=== PATIENT | male | born 1955 | race Caucasian/White ===

== ENCOUNTER → 2017-11-18 | Outpatient (CLI) | payer OTHER ==
[~2017-11-18] MED LIST: AZITHROMYCIN 2250 MG PO; PROMETHAZINE-C120 ML PO; TOBRADEX EYE DRO5 ML OP; TRAMADOL 50 MG50 MG PO
== END ==
LOC: M.ULTRA 11-17 11:00
DX: K76.0 Fatty (change of) liver, not elsewhere classified (principal); R74.8 Abnormal levels of other serum enzymes

== ENCOUNTER 2020-09-28 13:17 | Emergency (ER) | payer OTHER ==
[~2020-09-28] VITALS: Ht 188 cm; Wt 99.8 kg
[2020-09-28] MEDS ORDERED: NORCO 10-325 T1 EACH PO (13:31)
[2020-09-28] MEDS ORDERED: VISTARIL 25 MG25 M1 PO (14:06)
[2020-09-28] MEDS ORDERED: XANAX 0.5 MG0.5 M1 PO ×2 (14:06→14:09)
[2020-09-28 14:15] VITALS: BP 127/80
== END 2020-09-28 14:15 | disposition home or self-care (01) ==
LOC: M.ERS 13:17
DX: M79.604 Pain in right leg (principal); F41.1 Generalized anxiety disorder; F17.210 Nicotine dependence, cigarettes, uncomplicated; Z86.718 Personal history of other venous thrombosis and embolism

== ENCOUNTER 2020-10-13 04:16 | Emergency (ER) | payer OTHER ==
[~2020-10-13] VITALS: Ht 188 cm; Wt 102.1 kg
[~2020-10-13 04:16] MED LIST changes: +NORCO 10-325 T1 EACH PO; +VISTARIL 25 MG25 M1 PO; +XANAX 0.5 MG0.5 M1 PO
[2020-10-13] MEDS ORDERED: WELLBUTRIN 75 M75 M1 PO (04:27)
[2020-10-13] MEDS ORDERED: XANAX 0.5 MG0.5 M1 PO (04:28)
[2020-10-13 04:46] LABS: HEMATOCRIT 41.1 % (42.0-52.0); HEMOGLOBIN 14.4 gm/dL (14.0-18.0); MCH 37.7 pg (26.0-34.0); MCHC 35.1 g/dL (28.0-37.0); MCV 107.3 fL (80.0-100.0); MPV 7.5 fl. (7.2-11.1); RBC 3.84 mil/uL (4.50-6.00); RDW-CV 16.1 % (10.5-14.5); WBC 8.9 thou/uL (4.0-11.0)
[2020-10-13 04:57] LABS: CALCIUM 8.1 mg/dL (8.5-10.1); CREATININE 0.8 mg/dL (0.6-1.3); POTASSIUM 3.3 mmol/L (3.5-5.1)
[2020-10-13 05:09] LABS: SALICYLATE 3.4 mg/dL (2.8-20.0)
[2020-10-13 05:10] LABS: ALBUMIN 3.4 g/dL (3.4-5.0); TOTAL BILIRUBIN 1.5 mg/dL (<0.1-1.0); TOTAL PROTEIN 7.3 g/dL (6.4-8.2)
[2020-10-13 05:16] LABS: ACETAMINOPHEN < 2 ug/mL (10-30); ALCOHOL < 10 mg/dL (<10)
[2020-10-13 05:20] LABS: URINE BLOOD NEGATIVE (Negative); URINE CLARITY CLEAR; URINE COLOR YELLOW; URINE GLUCOSE-RANDOM NEGATIVE (Negative); URINE KETONES TRACE (Negative); URINE LEUKOCYTES NEGATIVE (Negative); URINE NITRITE NEGATIVE (Negative); URINE PROTEIN NEGATIVE (Negative); URINE SPECIFIC GRAVITY 1.015 (1.005-1.030)
[2020-10-13 05:22] LABS: ICTOTEST (BILI CONFIRMATORY) Negative (Negative); URINE BILIRUBIN 1+ (Negative)
[2020-10-13 05:29] LABS: AMP/METHAMP POSITIVE (Negative); BARBITURATES Negative (Negative); BENZODIAZEPINES POSITIVE (Negative); COCAINE Negative (Negative); METHADONE Negative (Negative); OPIATES Negative (Negative); PCP Negative (Negative); THC Negative (Negative)
[2020-10-13 09:32] VITALS: BP 152/80
--- NOTE | 2020-10-13 15:13 | EKG ---
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 : 1955 Requested By: Donya Ford Order Number: [id number] MD: Donnell Finley Measurements Intervals [place] Rate: 79 P: 39 [place]: 170 QRS: -23 QRSD: 93 T: 1 QT: 433 QTc: 497 Interpretive Statements Sinus rhythm Left ventricular hypertrophy Borderline prolonged QT interval Compared to ECG 10/05/2006 15:20:44 Left ventricular hypertrophy now present Electronically Signed On 10-13-2020 15:12:48 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
== END 2020-10-13 09:32 | disposition home or self-care (01) ==
LOC: M.ERS 04:16
PROVIDERS: Personal Emergency Response Attendant
DX: F15.959 Other stimulant use, unspecified with stimulant-induced psychotic disorder, unspecified (principal); F17.210 Nicotine dependence, cigarettes, uncomplicated; Z96.651 Presence of right artificial knee joint; Z86.718 Personal history of other venous thrombosis and embolism; Z79.899 Other long term (current) drug therapy

== ENCOUNTER → 2020-12-16 | Outpatient (CLI) | payer OTHER ==
[~2020-12-16] MED LIST changes: +WELLBUTRIN 75 M75 M1 PO
== END ==
LOC: M.CT 08:31
PROVIDERS: ATTEND Internal Medicine
DX: K92.1 Melena (principal); F10.20 Alcohol dependence, uncomplicated; I77.810 Thoracic aortic ectasia; I51.7 Cardiomegaly; I25.10 Atherosclerotic heart disease of native coronary artery without angina pectoris

== ENCOUNTER → 2021-02-03 | Outpatient (CLI) | payer OTHER ==
--- NOTE | 2021-02-03 14:00 | CARDNUC ---
[place] [address] CARDIAC NUCLEAR IMAGING REPORT Name: LUNAJAIR RUPERT Room: [facility]#: [id number] Admission: 02/03/21 Attend Phys: Shawanda Cox Discharge: Date of : 59 Date of Service: 02/03/21 1400 Report #: [id number] THIS REPORT FOR: cc: Hardeep Edge MD, Meng MD Liston, Michael J. MD [facility] ~ APPROVED REPORT Imaging Protocol: Rest Tc-99m/Stress Tc-99m 1 day Study performed: 02/03/2021 09:12:37 Indication: Dyspnea, elevated coronary artery calcium score. Patient Location: Out-Patient Stress Tech: Bridgette Jacques Stress Nurse: Rufina Douglas RN NM Tech:JULIÁN Rose Ht: 5 ft 11 in Wt: 219 lbs BSA: 2.19 m2 HR: 72 bpm BP: 182/89 mmHg BMI: 30.54 Medical History Medical History: Dyspnea, elevated coronary artery calcium score, ASHD, cardiomegaly, AAA, alcohol abuse, EILEEN, bradycardia, visual impairment, 2 story fall with multiple fractures- ribs, spine, neck, s/p back surgery with rods, HTN, obesity. Medications: lisinopril Allergies: No known drug allergies Cardiac Risk Factors: Age, Current Smoker, FHX of CAD, HTN, cardiomegaly, AAA, elevated coronary artery calcium score. Previous Cardiac Procedures: None Pretest Chest Pain Characteristics: No chest pain Exercise History: Indeterminate Physical Disabilities: Unsteady weak gait, s/p multiple FX from fall - ribs, back, neck with pain. Meds Held (24 hrs): None Resting Data Rest SPECT myocardial perfusion imaging was performed in supine position 30 minutes following the intravenous injection of 9.0 mCi of Tc-99m Sestamibi. Time of rest injection: 739 Date: 02/03/2021 The images were gated to evaluate regional wall motion and calculate left [place] [address] CARDIAC NUCLEAR IMAGING REPORT Name: JAIR CARRASCO Room: [facility]#: [id number] Admission: 02/03/21 Attend Phys: Shawanda Cox Discharge: Date of : 59 Date of Service: 02/03/21 1400 Report #: [id number] Administration Route: IV Administration Site: Right Hand Pharmacologic Stress Pharmacologic stress test was performed by injecting Regadenoson 0.4 mg IV push over 10-15 seconds immediately followed by the intravenous injection of 29.9 mCi of Tc-99m Sestamibi. Time of stress injection: 924 Date: 02/03/2021 Administration Route: IV Administration Site: Right Hand Gated Stress SPECT was performed 40 minutes after stress injection. The images were gated to evaluate regional wall motion and calculate left ventricular ejection fraction. Prone imaging was performed. Stress Test Details Stress Test: Pharmacologic stress was paired with low level exercise. Reason for pharmacologic stress test: Unsteady weak gait, s/p multiple FX from fall - ribs, back, neck with pain.. HR Max Heart Rate (APMHR): 157 bpm Resting HR: 72 bpm Target HR (85% APMHR): 133 bpm Max HR Achieved: 105 bpm % of APMHR: 66 Recovery HR: 79 bpm BP Resting BP: 182/89 mmHg Max BP: 210/84 mmHg Recovery BP: 164/99 mmHg ECG Resting ECG: Sinus Rhythm Stress ECG: Sinus Tachycardia ST Change: None Arrhythmia: None Recovery ECG: Sinus Rhythm Recovery ST Change: None Recovery Arrhythmia: None Clinical Reason for Termination: Completed protocol Stress Symptoms: Weak, shaky arms, dyspnea. Exercise duration: 4 min 00 sec Exercise capacity: 2.30 [place] [address] CARDIAC NUCLEAR IMAGING REPORT Name: JAIR CARRASCO [id number] Admission: 02/03/21 Attend Phys: Shawanda Cox Discharge: Date of : 59 Date of Service: 02/03/21 1400 Report #: [id number] The patient is walking with skin protocol with no significant cardiac symptoms. Nurse Comments A 65 year old male presented for a walking Lexiscan. Test tolerated. Recovery unremarkable. Patient was stable and stated he felt better when escorted to Nuclear Medicine for imaging. Stress ECG Conclusion Baseline twelve-lead EKG shows sinus rhythm without significant ST segment or T wave abnormality. EKGs obtained during and post walking Lexiscan protocol show sinus rhythm and sinus tachycardia with no significant ST segment or T wave changes when compared to baseline. There were no stress-induced arrhythmias. Study Quality Study: Good Artifact: Mild Diaphragmatic artifact Study Data At rest, the left ventricular ejection fraction was 61%.. Post stress, the left ventricular ejection was 6%.. TID = 0.95. Perfusion Perfusion images obtained in the supine position show mild photopenia of the wall that resolves completely with post-rest Wall Motion Normal left ventricular wall motion. Nuclear Conclusion ECG Findings: negative for ischemia Clinical Findings: negative for ischemia Nuclear Findings: negative for ischemia Exercise Capacity: not assessed Left Ventricular Function: normal Risk Study: low Perfusion study showed no defect to suggest infarct or ischemia. Left ventricular systolic function appears normal on gated studies. This is a low risk study. <Conclusion> Baseline twelve-lead EKG shows sinus rhythm without significant ST segment or T wave abnormality. EKGs obtained during and post walking Lexiscan protocol show sinus rhythm and [place] [address] CARDIAC NUCLEAR IMAGING REPORT Name: JAIR CARRASCO Room: [facility]#: [id number] Admission: 02/03/21 Attend Phys: Shawanda Cox Discharge: Date of : 59 Date of Service: 02/03/21 1400 Report #: [id number] segment or T wave changes when compared to baseline. There were no stress-induced arrhythmias. <ELECTRONICALLY SIGNED> By: Damián Glover MD, FACC 02/03/21 1400 1400 99 Damián Glover MD, FACC /INF
== END ==
LOC: M.NUC 01-20 15:29
PROVIDERS: ATTEND Internal Medicine
DX: R93.1 Abnormal findings on diagnostic imaging of heart and coronary circulation (principal); I10 Essential (primary) hypertension; Z72.0 Tobacco use

== ENCOUNTER 2021-03-27 14:16 | Emergency (ER) | payer OTHER ==
[~2021-03-27] VITALS: Ht 188 cm; Wt 98.0 kg
[2021-03-27 14:53] LABS: ABSOLUTE LYMPHOCYTES 0.7 thou/uL (0.8-5.3); ABSOLUTE MONOCYTES 0.7 thou/uL (0.0-1.2); ABSOLUTE NEUTROPHILS 6.7 thou/uL (1.6-8.1); BASOPHILS 0.5 %; EOSINOPHILS 0.4 %; HEMATOCRIT 45.4 % (42.0-52.0); HEMOGLOBIN 15.6 gm/dL (14.0-18.0); MCH 34.9 pg (26.0-34.0); MCHC 34.4 g/dL (28.0-37.0); MCV 101.3 fL (80.0-100.0); MONOCYTES 8.4 %; NUCLEATED RBCS 0 /100WBC; PLATELET COUNT* 174 thou/uL (150-400); POLYS 82.7 %; RBC 4.48 mil/uL (4.50-6.00); RDW-CV 14.8 % (10.5-14.5); WBC 8.1 thou/uL (4.0-11.0)
[2021-03-27 15:06] LABS: CALCIUM 8.3 mg/dL (8.5-10.1); CREATININE 0.8 mg/dL (0.6-1.3)
[2021-03-27 15:10] LABS: ALBUMIN 3.2 g/dL (3.4-5.0); TOTAL PROTEIN 7.8 g/dL (6.4-8.2)
[2021-03-27] MEDS ORDERED: ZOFRAN ODT4 MG DISSOLVE (16:07)
[2021-03-27 16:17] LABS: URINE BLOOD NEGATIVE (Negative); URINE CLARITY CLEAR; URINE COLOR YELLOW; URINE GLUCOSE-RANDOM NEGATIVE (Negative); URINE KETONES NEGATIVE (Negative); URINE LEUKOCYTES-REFLEX NEGATIVE (Negative); URINE NITRITE-REFLEX NEGATIVE (Negative); URINE PROTEIN NEGATIVE (Negative)
[2021-03-27 16:21] LABS: ICTOTEST (BILI CONFIRMATORY) Negative (Negative); URINE BILIRUBIN 1+ (Negative)
[2021-03-27 16:30] VITALS: BP 138/67
--- NOTE | 2021-03-28 10:09 | EKG ---
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: : 1955 Requested By: Andre Luis Order Number: [id number] MD: Phuc Galindo Measurements Intervals [place] Rate: 89 P: 60 [place]: 154 QRS: -21 QRSD: 85 T: 48 QT: 439 QTc: 535 Interpretive Statements Sinus rhythm Borderline left axis deviation nonspecific st segment changes Prolonged QT interval Compared to ECG 10/13/2020 04:30:35 Left ventricular hypertrophy no longer present Electronically Signed On 03-28-2021 10:09:28 CDT by Phuc Galindo [email or web address] <ELECTRONICALLY SIGNED> By: Phuc Galindo MD, FAC 03/28/21 1009 1436 1436 Phuc Galindo MD, [facility] /EPI
== END 2021-03-27 16:30 | disposition home or self-care (01) ==
LOC: M.ERS 14:16
PROVIDERS: Family Medicine
DX: R11.2 Nausea with vomiting, unspecified (principal); T50.B95A Adverse effect of other viral vaccines, initial encounter; F17.210 Nicotine dependence, cigarettes, uncomplicated; Z96.651 Presence of right artificial knee joint; Z86.718 Personal history of other venous thrombosis and embolism; Y92.89 Other specified places as the place of occurrence of the external cause

== ENCOUNTER → 2021-10-01 | Outpatient (CLI) | payer OTHER ==
[~2021-10-01] MED LIST changes: +ZOFRAN ODT4 MG DISSOLVE
== END ==
LOC: M.RAD 08:23
PROVIDERS: ATTEND Internal Medicine
DX: S22.31XD Fracture of one rib, right side, subsequent encounter for fracture with routine healing (principal); S42.001D Fracture of unspecified part of right clavicle, subsequent encounter for fracture with routine healing; X58.XXXD Exposure to other specified factors, subsequent encounter; Z72.0 Tobacco use

== ENCOUNTER → 2021-11-20 | Outpatient (CLI) | payer OTHER | LOC: M.RAD 09:06 | PROVIDERS: ATTEND Internal Medicine | DX: M25.78 Osteophyte, vertebrae (principal); M54.2 Cervicalgia; Z98.1 Arthrodesis status ==

== ENCOUNTER → 2021-11-23 | Outpatient (CLI) | payer OTHER | LOC: M.ULTRA 07:37 | PROVIDERS: ATTEND Internal Medicine | DX: K76.0 Fatty (change of) liver, not elsewhere classified (principal); R16.0 Hepatomegaly, not elsewhere classified; K76.89 Other specified diseases of liver; R16.1 Splenomegaly, not elsewhere classified; K74.60 Unspecified cirrhosis of liver; F10.21 Alcohol dependence, in remission ==